=== PATIENT | male | born 1970 | race African-American/Black ===

== ENCOUNTER 2024-08-30 20:20 | Inpatient (IN) | payer OTHER ==
[2024-08-30] MEDS: SODIUM CHLORIDE 0.9% 500 ML INFUS.BAG IV ONE (21:19)
[2024-08-30 21:51] LABS: VENOUS BASE EXCESS -4.1 mmol/L (-2-2); VENOUS PCO2 39.8 mmHg (38-52); VENOUS PH 7.345 (7.310-7.410)
[2024-08-30 21:55] LABS: HEMATOCRIT 26.1 % (35.4-49); HEMOGLOBIN 8.7 GM/dL (11.7-16.9); MCH 29.2 pg (25.7-33.7); MCHC 33.4 g/dl (32.0-35.9); MEAN CELL VOLUME 87.4 fl (80-96); MEAN PLT VOLUME 9.3 fl (7.5-11.1); PLATELET COUNT 218 10^3/uL (134-434); RBC 2.99 M/mm3 (4.00-5.60); RDW 14.2 % (11.9-15.9); WHITE BLOOD COUNT 10.2 K/mm3 (4.0-10.0)
[2024-08-30 22:03] LABS: INR 1.29 (0.83-1.09); PROTHROMBIN TIME (PATIENT) 14.7 SEC (9.7-13.0)
[2024-08-30 22:05] LABS: ACTIVATED PTT 32.4 SECONDS (25.2-36.5)
[2024-08-30 22:15] LABS: POTASSIUM 5.5 mmol/L (3.5-5.1)
[2024-08-30 22:17] LABS: ALBUMIN 2.5 g/dl (3.4-5.0); BLOOD UREA NITROGEN 55.3 mg/dL (7-18); CALCIUM 8.8 mg/dL (8.5-10.1); MAGNESIUM 1.7 mg/dL (1.8-2.4)
[2024-08-30] MEDS: ACETAMINOPHEN 1000 MG/100 ML BAG IVPB ONE (22:18)
[2024-08-30] MEDS: VANCOMYCIN PREMIX 1.75 GM 1,750 MG/350 ML PIGGYBACK IVPB ONE (22:19)
[2024-08-30 22:20] LABS: CREATININE 5.7 mg/dL (0.55-1.3)
[2024-08-30 22:21] LABS: PHOSPHOROUS 3.5 mg/dL (2.5-4.9)
[2024-08-30 22:22] LABS: TOT PROT 7.2 g/dl (6.4-8.2)
[2024-08-30] MEDS: MAGNESIUM SULFATE IN WATER 2 GM/50 ML IVPB IVPB ONE (22:30)
[2024-08-30 22:41] LABS: BILIRUBIN,TOTAL 0.5 mg/dL (0.2-1)
[2024-08-30 22:43] LABS: ANISOCYTOSIS 1+; MACROCYTOSIS 0
[2024-08-30 23:05] LABS: POTASSIUM 4.5 mmol/L (3.5-5.1)
[2024-08-30 23:06] LABS: CALCIUM 8.9 mg/dL (8.5-10.1)
[2024-08-30 23:07] LABS: BLOOD UREA NITROGEN 54.5 mg/dL (7-18)
[2024-08-30 23:10] LABS: CREATININE 5.7 mg/dL (0.55-1.3)
[2024-08-30] MEDS ORDERED: ACETAMINOPHEN INJECTION 100 ML ONE (23:14)
[2024-08-30] MEDS ORDERED: MAGNESIUM SULFATE IN WATER 2 GM/50 ML IVPB IVPB ONE (23:20)
[2024-08-30] MEDS ORDERED: ONDANSETRON 4 MG/2 ML VIAL ONE (23:20)
[2024-08-30] MEDS: ONDANSETRON 4 MG/2 ML VIAL IVPUSH ONE (23:30)
[2024-08-30] MEDS: PIPERACILLIN/TAZOB 2.25 GM 2.25 GM in DEXTROSE 5%-WATER - 50 ML IVPB ONE (23:30)
[2024-08-30 23:37] LABS: ERYTHROCYTE SEDIMENTATION RATE 115 mm/hr (0-20)
[2024-08-30] MEDS ORDERED: PIPERACILLIN/TAZOB 2.25 GM 2.25 GM/50 ML BAG IVPB ONE (23:43)
[2024-08-31 01:59] LABS: EPI CELLS >36 /uL (0-25.1); HYALINE CASTS 3 /uL (0-3.1); PH,URINE 5.5 (5.0-8.0); URINE APPEARANCE CLOUDY; URINE BACTERIA 20 /uL (0-1359); URINE BILIRUBIN NEGATIVE (NEGATIVE); URINE COLOR YELLOW; URINE GLUCOSE (UA) NEGATIVE (NEGATIVE); URINE KETONE NEGATIVE (NEGATIVE); URINE LEUK ESTERASE 2+ (NEGATIVE); URINE NITRITE NEGATIVE (NEGATIVE); URINE PROTEIN 3+ (NEGATIVE); URINE WBC 386 /uL (0-25.8)
[2024-08-31] MEDS: HEPARIN NA (PORCINE) 5,000 UNITS/ML 1ML VIAL SQ SCH (06:51)
[2024-08-31] MEDS ORDERED: HEPARIN NA (PORCINE) 5,000 UNITS/ML 1ML VIAL ONE (06:51)
[2024-08-31] MEDS: INSULIN ASPART SLIDING SCALE (NOVOLOG) 1 VIAL SQ SCH (07:01)
[2024-08-31 08:26] LABS: MCH 29.2 pg (25.7-33.7); MCHC 33.3 g/dl (32.0-35.9); MEAN CELL VOLUME 87.7 fl (80-96); MEAN PLT VOLUME 8.6 fl (7.5-11.1); PLATELET COUNT 215 10^3/uL (134-434); RBC 3.08 M/mm3 (4.00-5.60); RDW 14.4 % (11.9-15.9); WHITE BLOOD COUNT 9.8 K/mm3 (4.0-10.0)
[2024-08-31 08:50] LABS: CHOLESTEROL 108 mg/dL (50-200); IRON SERUM 10 ug/dL (50-175)
[2024-08-31 08:51] LABS: TOTAL IRON BINDING CAPACITY 120 ug/dL (250-450)
[2024-08-31 08:52] LABS: LDL CHOLESTEROL (ONLY SJRH) 57 mg/dL (5-100)
[2024-08-31 08:53] LABS: HDL CHOLESTEROL 17 mg/dL (40-60)
[2024-08-31 08:54] LABS: POTASSIUM 4.7 mmol/L (3.5-5.1)
[2024-08-31 08:56] LABS: ALBUMIN 2.2 g/dl (3.4-5.0); CALCIUM 8.7 mg/dL (8.5-10.1)
[2024-08-31 08:57] LABS: MAGNESIUM 2.2 mg/dL (1.8-2.4)
[2024-08-31 09:00] LABS: CREATININE 5.5 mg/dL (0.55-1.3)
[2024-08-31 09:01] LABS: BILIRUBIN,TOTAL 0.6 mg/dL (0.2-1)
[2024-08-31 09:02] LABS: TOT PROT 6.5 g/dl (6.4-8.2)
[2024-08-31] MEDS ORDERED: PIPERACILLIN/TAZOB 2.25 GM 2.25 GM/50 ML BAG IVPB ONE (11:47)
[2024-08-31] MEDS: PIPERACILLIN/TAZOB 2.25 GM 2.25 GM in DEXTROSE 5%-WATER - 50 ML IVPB SCH (11:56)
[2024-08-31] MEDS ORDERED: VANCOMYCIN/WATER FOR INJ (PEG) 1,000 MG/200 ML BAG IVPB SCH (22:00)
[2024-08-31] MEDS ORDERED: VANCOMYCIN 1,000 MG in DEXTROSE 5%-WATER - 250 ML IVPB SCH (22:00)
[2024-08-31 22:09] VITALS: BMI 20.2
[2024-08-31] MEDS: PIPERACILLIN/TAZOB 2.25 GM 2.25 GM/50 ML BAG IVPB SCH (23:44)
[2024-08-31] MEDS: ACETAMINOPHEN 325 MG TABLET (FP) PO ONE (23:59)
[2024-09-01] MEDS: MELATONIN 5 MG TABLETS PO ONE (01:32)
[2024-09-01 10:50] LABS: BASO % 0.3 % (0-2.0); EOS % 2.8 % (0-4.5); HEMATOCRIT 26.3 % (35.4-49); LYMPH % 3.1 % (8-40); MCH 29.6 pg (25.7-33.7); MCHC 34.2 g/dl (32.0-35.9); MEAN CELL VOLUME 86.4 fl (80-96); MEAN PLT VOLUME 8.8 fl (7.5-11.1); MONO % 4.6 % (3.8-10.2); NEUT % 89.2 % (42.8-82.8); PLATELET COUNT 225 10^3/uL (134-434); RBC 3.04 M/mm3 (4.00-5.60); RDW 14.3 % (11.9-15.9); WHITE BLOOD COUNT 10.3 K/mm3 (4.0-10.0)
[2024-09-01 11:18] LABS: POTASSIUM 4.4 mmol/L (3.5-5.1)
[2024-09-01 11:25] LABS: CALCIUM 8.4 mg/dL (8.5-10.1)
[2024-09-01 11:28] LABS: BILIRUBIN,TOTAL 0.6 mg/dL (0.2-1); CREATININE 5.2 mg/dL (0.55-1.3); TOT PROT 6.4 g/dl (6.4-8.2)
[2024-09-01 11:30] LABS: ALBUMIN 2.1 g/dl (3.4-5.0); BLOOD UREA NITROGEN 56.4 mg/dL (7-18)
[2024-09-01] MEDS: PIPERACILLIN/TAZOB 2.25 GM 2.25 GM in DEXTROSE 5%-WATER - 50 ML IVPB SCH (11:45)
[2024-09-01] MEDS: COLLAGENASE CLOSTRIDIUM HIST. 30 GRAMS TUBE TP SCH (11:50)
[2024-09-01] MEDS: SODIUM CHLORIDE 1,000 ML IV SCH (15:45)
[2024-09-01] MEDS ORDERED: PIPERACILLIN/TAZOB 2.25 GM 2.25 GM/50 ML BAG IVPB SCH (23:45)
[2024-09-02] MEDS: QUEtiapine FUMARATE 50 MG TABLET PO ONE (00:15)
[2024-09-02] MEDS: MELATONIN 5 MG TABLETS PO PRN (00:16)
[2024-09-02 08:59] LABS: POTASSIUM 4.3 mmol/L (3.5-5.1)
[2024-09-02 09:00] LABS: CALCIUM 8.6 mg/dL (8.5-10.1)
[2024-09-02 09:02] LABS: ALBUMIN 1.9 g/dl (3.4-5.0); MAGNESIUM 1.9 mg/dL (1.8-2.4)
[2024-09-02 09:05] LABS: BILIRUBIN,TOTAL 0.5 mg/dL (0.2-1); CREATININE 4.8 mg/dL (0.55-1.3); PHOSPHOROUS 1.9 mg/dL (2.5-4.9); TOT PROT 6.1 g/dl (6.4-8.2)
[2024-09-02 09:08] LABS: HEMATOCRIT 25.6 % (35.4-49); HEMOGLOBIN 8.6 GM/dL (11.7-16.9); MCH 29.5 pg (25.7-33.7); MCHC 33.6 g/dl (32.0-35.9); MEAN CELL VOLUME 87.7 fl (80-96); MEAN PLT VOLUME 8.8 fl (7.5-11.1); PLATELET COUNT 215 10^3/uL (134-434); RBC 2.92 M/mm3 (4.00-5.60); RDW 14.7 % (11.9-15.9); WHITE BLOOD COUNT 9.8 K/mm3 (4.0-10.0)
[2024-09-02 14:11] LABS: METHADONE, UR NEGATIVE (NEGATIVE); OPIATES, URI NEGATIVE (NEGATIVE); PHENCYCLIDINE,URINE NEGATIVE (NEGATIVE); URINE BARBITURATES NEGATIVE (NEGATIVE); URINE BENZODIAZEPINES NEGATIVE (NEGATIVE)
[2024-09-02 14:15] LABS: COCAINE, UR POSITIVE (NEGATIVE); URINE AMPHETAMINES NEGATIVE (NEGATIVE)
[2024-09-03] MEDS: VITAMIN B COMP W-C 1 EA TABLET (NEPHRO-VITE) PO SCH (09:18)
[2024-09-03] MEDS: QUEtiapine FUMARATE 100 MG TABLET (FP) PO SCH (21:29)
[2024-09-04] MEDS: LIDOCAINE HCL 1%, 10 MG/ML (20ML VIAL) INF ONE
[2024-09-04] MEDS ORDERED: LIDOCAINE HCL/PF 1% SDV 5ML VIAL ONE (07:11)
[2024-09-04] MEDS ORDERED: BUPIVACAINE HCL/PF 0.5% (5MG/ML) 10 ML VIAL ONE (07:11)
[2024-09-04] MEDS ORDERED: GENTAMICIN SO4 80 MG/2 ML VIAL ONE (07:24)
[2024-09-04] MEDS ORDERED: LIDOCAINE HCL 1%, 10 MG/ML (20ML VIAL) ONE (07:24)
[2024-09-04] MEDS: PIPERACILLIN/TAZOB 2.25 GM 2.25 GM in DEXTROSE 5%-WATER - 50 ML IVPB SCH ×2 (07:42→12:56)
[2024-09-04] MEDS ORDERED: MIDAZOLAM HCL 2 MG/2 ML SINGLE DOSE VIAL ONE (07:43)
[2024-09-04] MEDS ORDERED: SUCCINYLCHOLINE CHLORIDE 200 MG/10 ML SYRINGE ONE (07:43)
[2024-09-04] MEDS ORDERED: PROPOFOL 20 ML ONE (07:43)
[2024-09-04] MEDS: BUPIVACAINE HCL/PF 0.5% (5MG/ML) 10 ML VIAL IJ ONE (07:52)
[2024-09-04 10:25] LABS: HEMOGLOBIN 8.3 GM/dL (11.7-16.9); MCH 28.9 pg (25.7-33.7); MCHC 33.3 g/dl (32.0-35.9); MEAN CELL VOLUME 86.9 fl (80-96); MEAN PLT VOLUME 8.8 fl (7.5-11.1); PLATELET COUNT 236 10^3/uL (134-434); RBC 2.87 M/mm3 (4.00-5.60); RDW 14.8 % (11.9-15.9); WHITE BLOOD COUNT 10.4 K/mm3 (4.0-10.0)
[2024-09-04 10:45] LABS: POTASSIUM 4.3 mmol/L (3.5-5.1)
[2024-09-04 10:48] LABS: BLOOD UREA NITROGEN 54.4 mg/dL (7-18)
[2024-09-04 10:52] LABS: CREATININE 4.6 mg/dL (0.55-1.3); PHOSPHOROUS 1.8 mg/dL (2.5-4.9)
[2024-09-04] MEDS: VANCOMYCIN/WATER FOR INJ (PEG) 1,000 MG/200 ML BAG IVPB SCH (12:05)
[2024-09-04] MEDS: VANCOMYCIN 1,000 MG in DEXTROSE 5%-WATER - 250 ML IVPB SCH (12:55)
[2024-09-04] MEDS: PIPERACILLIN/TAZOB 2.25 GM 2.25 GM/50 ML BAG IVPB SCH (12:56)
[2024-09-04] MEDS: NAPH,MB-DB/K PH,MBDB POWDER PACKET PO ONE (13:23)
[2024-09-04] MEDS: CEFTRIAXONE 2 GM-D5W BAG 2 GM/50 ML BAG IVPB SCH (13:23)
[2024-09-04 14:37] VITALS: RESP 18
[2024-09-04 21:06] LABS: ANTIGLOMERULAR BASEMENT MEN.AB <0.2 units (0.0-0.9)
[2024-09-04] MEDS: HEPARIN NA (PORCINE) 5,000 UNITS/ML 1ML VIAL SQ SCH (21:55)
[2024-09-05 13:13] LABS: HEMATOCRIT 25.5 % (35.4-49); HEMOGLOBIN 8.2 GM/dL (11.7-16.9); MCH 28.4 pg (25.7-33.7); MCHC 32.1 g/dl (32.0-35.9); MEAN CELL VOLUME 88.5 fl (80-96); MEAN PLT VOLUME 8.8 fl (7.5-11.1); PLATELET COUNT 309 10^3/uL (134-434); RBC 2.88 M/mm3 (4.00-5.60); RDW 14.8 % (11.9-15.9)
[2024-09-05 13:38] LABS: POTASSIUM 4.7 mmol/L (3.5-5.1)
[2024-09-05 13:43] LABS: ALBUMIN 2.1 g/dl (3.4-5.0); BLOOD UREA NITROGEN 55.4 mg/dL (7-18); CALCIUM 8.6 mg/dL (8.5-10.1)
[2024-09-05 13:46] LABS: CREATININE 4.4 mg/dL (0.55-1.3)
[2024-09-05 13:47] LABS: BILIRUBIN,TOTAL 0.2 mg/dL (0.2-1); PHOSPHOROUS 2.5 mg/dL (2.5-4.9); TOT PROT 7.2 g/dl (6.4-8.2)
[2024-09-05 16:08] LABS: C-ANCA <1:20 titer (Neg:<1:20)
[2024-09-06 12:24] LABS: HEMATOCRIT 24.7 % (35.4-49); HEMOGLOBIN 8.1 GM/dL (11.7-16.9); MCH 29.2 pg (25.7-33.7); MCHC 32.8 g/dl (32.0-35.9); MEAN CELL VOLUME 89.1 fl (80-96); MEAN PLT VOLUME 8.5 fl (7.5-11.1); PLATELET COUNT 335 10^3/uL (134-434); RBC 2.77 M/mm3 (4.00-5.60); RDW 15.1 % (11.9-15.9); WHITE BLOOD COUNT 10.9 K/mm3 (4.0-10.0)
[2024-09-06 12:37] LABS: POTASSIUM 5.1 mmol/L (3.5-5.1)
[2024-09-06 12:44] LABS: BLOOD UREA NITROGEN 57.8 mg/dL (7-18); CALCIUM 8.6 mg/dL (8.5-10.1); MAGNESIUM 2.1 mg/dL (1.8-2.4)
[2024-09-06 12:48] LABS: CREATININE 4.2 mg/dL (0.55-1.3)
[2024-09-07] MEDS ORDERED: MELATONIN 5 MG TABLETS PO PRN (08:14)
[2024-09-07 10:00] VITALS: BP 139/79; PULSE 89; TEMP 97.9
[2024-09-07 10:23] LABS: HEMATOCRIT 25.9 % (35.4-49); HEMOGLOBIN 8.4 GM/dL (11.7-16.9); MCH 28.9 pg (25.7-33.7); MCHC 32.5 g/dl (32.0-35.9); MEAN CELL VOLUME 88.9 fl (80-96); MEAN PLT VOLUME 8.6 fl (7.5-11.1); PLATELET COUNT 402 10^3/uL (134-434); RBC 2.91 M/mm3 (4.00-5.60); RDW 15.1 % (11.9-15.9); WHITE BLOOD COUNT 10.3 K/mm3 (4.0-10.0)
[2024-09-07 10:32] LABS: POTASSIUM 5.1 mmol/L (3.5-5.1)
[2024-09-07 10:42] LABS: ALBUMIN 2.2 g/dl (3.4-5.0); CALCIUM 8.9 mg/dL (8.5-10.1); MAGNESIUM 2.1 mg/dL (1.8-2.4)
[2024-09-07 10:45] LABS: PHOSPHOROUS 3.4 mg/dL (2.5-4.9)
[2024-09-07 10:47] LABS: BILIRUBIN,TOTAL 0.3 mg/dL (0.2-1)
[2024-09-07] MEDS: FLUoxetine HCL 10 MG CAPSULE PO SCH (10:49)
[2024-09-07] MEDS: NIFEdipine E.R. 30 MG TABLET PO SCH (10:50)
[2024-09-07] MEDS: VITAMIN B COMP W-C 1 EA TABLET (NEPHRO-VITE) PO SCH (10:50)
[2024-09-07] MEDS: SODIUM CHLORIDE 1,000 ML IV SCH (10:51)
[2024-09-07 10:56] LABS: ANISOCYTOSIS 0; MACROCYTOSIS 0
[2024-09-07] MEDS: INSULIN ASPART SLIDING SCALE (NOVOLOG) 1 VIAL SQ SCH (12:02)
[2024-09-07] MEDS: COLLAGENASE CLOSTRIDIUM HIST. 30 GRAMS TUBE TP SCH (15:03)
[2024-09-07] MEDS ORDERED: QUEtiapine FUMARATE 100 MG TABLET (FP) PO SCH (22:00)
[2024-09-08] MEDS ORDERED: AMOX TR/POT CLAV 500MG/125MG TABLETS (FP) PO SCH (08:00)
== END 2024-09-07 18:56 | disposition home or self-care (01) | DRG 344 ==
LOC: JER 20:20 → JERBED 23:13 → J6S 08-31 18:27
PROVIDERS: ADMIT Internal Medicine; ATTEND Internal Medicine
PROC: 0QBN3ZX Excision of Right Metatarsal, Percutaneous Approach, Diagnostic (ICD-10-PCS; principal; 2024-09-04 07:30)
DX: E11.69 Type 2 diabetes mellitus with other specified complication (principal); M86.9 Osteomyelitis, unspecified; E11.621 Type 2 diabetes mellitus with foot ulcer; N17.9 Acute kidney failure, unspecified; L03.115 Cellulitis of right lower limb; D63.1 Anemia in chronic kidney disease; F14.10 Cocaine abuse, uncomplicated; I10 Essential (primary) hypertension; L97.519 Non-pressure chronic ulcer of other part of right foot with unspecified severity; N18.9 Chronic kidney disease, unspecified; Z59.00 Homelessness unspecified
CPT/HCPCS: 0241U-QW; 36415; 71045-TC-FY; 71046-TC-FY; 73630-TC-RT-FY; 73718-TC-RT; 76775-TC; 80048; 80053; 80061; 80307; 81003; 82010; 82550; 82570; 82728; 82803; 82962; 83036; 83516; 83520; 83540; 83550; 83605; 83690; 83735; 84100; 84155; 84165; 84300; 84484; 85025; 85027; 85610; 85651; 85660; 85730; 86038; 86140; 86225; 86256; 86480; 86780; 86803; 86850; 86900; 86901; 87040; 87070; 87075; 87077; 87081; 87086; 87116; 87186; 87205; 87206; 87522; 93005; 93010; 93922; 93926-TC; 97116-GP; 97161-GP; 99285-25; G0480; J0131; J1644; J3370

== ENCOUNTER 2024-09-09 23:59 | Emergency (ER) | payer OTHER ==
[2024-09-10 00:28] VITALS: BP 156/91; PULSE 96; RESP 17; TEMP 98; BMI 19.5
[2024-09-10] MEDS ORDERED: diphenhydrAMINE HCL 25 MG CAPSULE (FP) PO ONE (00:48)
[2024-09-10] MEDS: diphenhydrAMINE HCL 25 MG CAPSULE (FP) PO ONE (01:00)
== END 2024-09-10 03:11 | disposition home or self-care (01) ==
LOC: JER 23:59
DX: L29.9 Pruritus, unspecified (principal)
CPT/HCPCS: 99283-25

== ENCOUNTER 2024-09-11 19:17 | Inpatient (IN) | payer OTHER ==
[2024-09-11] MEDS: ACETAMINOPHEN 1000 MG/100 ML BAG IVPB ONE (20:38)
[2024-09-11] MEDS ORDERED: PIPERACILLIN/TAZOB 2.25 GM 2.25 GM/50 ML BAG IVPB ONE (21:12)
[2024-09-11] MEDS ORDERED: ACETAMINOPHEN INJECTION 100 ML ONE (21:12)
[2024-09-11 21:20] LABS: EOS % 2.7 % (0-4.5); HEMATOCRIT 21.3 % (35.4-49); LYMPH % 26.1 % (8-40); MCH 28.6 pg (25.7-33.7); MCHC 32.1 g/dl (32.0-35.9); MEAN CELL VOLUME 89.1 fl (80-96); MEAN PLT VOLUME 7.5 fl (7.5-11.1); MONO % 8.4 % (3.8-10.2); NEUT % 61.8 % (42.8-82.8); PLATELET COUNT 460 10^3/uL (134-434); RBC 2.39 M/mm3 (4.00-5.60); RDW 15.1 % (11.9-15.9); WHITE BLOOD COUNT 8.3 K/mm3 (4.0-10.0)
[2024-09-11] MEDS: PIPERACILLIN/TAZOB 2.25 GM 2.25 GM in DEXTROSE 5%-WATER - 50 ML IVPB ONE (21:29)
[2024-09-11 21:31] LABS: POTASSIUM 5.7 mmol/L (3.5-5.1)
[2024-09-11 21:34] LABS: ALBUMIN 2.4 g/dl (3.4-5.0); BLOOD UREA NITROGEN 71.9 mg/dL (7-18)
[2024-09-11 21:37] LABS: CREATININE 4.6 mg/dL (0.55-1.3)
[2024-09-11 21:38] LABS: BILIRUBIN,TOTAL 0.2 mg/dL (0.2-1); TOT PROT 7.6 g/dl (6.4-8.2)
[2024-09-11 21:49] LABS: HEMOGLOBIN 6.8 GM/dL (11.7-16.9)
[2024-09-11] MEDS ORDERED: DEXTROSE 50%-WATER 25 GM/50 ML DISP.SYRIN ONE (22:46)
[2024-09-11] MEDS ORDERED: INSULIN REGULAR HUMAN 100 UNITS/ML *VIAL ONE (22:47)
[2024-09-11] MEDS: DEXTROSE 50%-WATER - 25 GM/50 ML VIAL IVPUSH ONE (22:57)
[2024-09-11] MEDS: INSULIN REGULAR HUMAN 100 UNITS/ML *VIAL IVPUSH ONE (22:57)
[2024-09-11 22:59] LABS: ERYTHROCYTE SEDIMENTATION RATE > 140 mm/hr (0-20)
[2024-09-11] MEDS ORDERED: VANCOMYCIN 1 GRAM (PRE-DOCKED) 1,000 MG/250 ML BAG IVPB ONE (23:05)
[2024-09-11] MEDS: VANCOMYCIN 1,000 MG in DEXTROSE 5%-WATER - 250 ML IVPB ONE (23:16)
[2024-09-12] MEDS ORDERED: DEXTROSE 50%-WATER 25 GM/50 ML DISP.SYRIN ONE ×2 (00:08→04:24)
[2024-09-12] MEDS: DEXTROSE 50%-WATER 25 GM/50 ML DISP.SYRIN IVPUSH ONE ×2 (00:18→15:55)
[2024-09-12] MEDS: DEXTROSE 50%-WATER - 25 GM/50 ML VIAL IVPUSH ONE (05:17)
[2024-09-12] MEDS ORDERED: SODIUM ZIRCONIUM CYCLOSILICATE (LOKELMA) 10 GM PACKET ONE (09:47)
[2024-09-12] MEDS ORDERED: NIFEdipine E.R. 30 MG TABLET PO ONE (09:47)
[2024-09-12] MEDS: NIFEdipine E.R. 30 MG TABLET PO SCH (10:01)
[2024-09-12] MEDS: SODIUM ZIRCONIUM CYCLOSILICATE (LOKELMA) 5 GM PACKET PO SCH (10:01)
[2024-09-12 10:02] LABS: BASO % 1.3 % (0-2.0); HEMATOCRIT 23.8 % (35.4-49); HEMOGLOBIN 7.5 GM/dL (11.7-16.9); LYMPH % 27.1 % (8-40); MCH 28.2 pg (25.7-33.7); MCHC 31.4 g/dl (32.0-35.9); MEAN PLT VOLUME 7.8 fl (7.5-11.1); MONO % 6.6 % (3.8-10.2); PLATELET COUNT 510 10^3/uL (134-434); RBC 2.65 M/mm3 (4.00-5.60); RDW 15.1 % (11.9-15.9); WHITE BLOOD COUNT 7.6 K/mm3 (4.0-10.0)
[2024-09-12 10:07] LABS: INR 1.13 (0.83-1.09); PROTHROMBIN TIME (PATIENT) 12.7 SEC (9.7-13.0)
[2024-09-12] MEDS: DAPTOMYCIN 450 MG in SODIUM CHLORIDE 50 ML IVPB SCH ×2 (10:14→21:05)
[2024-09-12 10:34] LABS: POTASSIUM 5.8 mmol/L (3.5-5.1)
[2024-09-12 10:36] LABS: CALCIUM 8.2 mg/dL (8.5-10.1)
[2024-09-12 10:37] LABS: ALBUMIN 2.2 g/dl (3.4-5.0); BLOOD UREA NITROGEN 66.9 mg/dL (7-18)
[2024-09-12 10:40] LABS: CREATININE 4.2 mg/dL (0.55-1.3); PHOSPHOROUS 4.4 mg/dL (2.5-4.9)
[2024-09-12 10:41] LABS: BILIRUBIN,TOTAL 0.3 mg/dL (0.2-1); TOT PROT 7.6 g/dl (6.4-8.2)
[2024-09-12] MEDS: INSULIN REGULAR HUMAN 100 UNITS/ML *VIAL IVPUSH ONE (15:55)
[2024-09-12] MEDS: CALCIUM GLUCONATE IN NACL 1 GM/50 ML BAG IVPB ONE (15:56)
[2024-09-12] MEDS: SODIUM ZIRCONIUM CYCLOSILICATE (LOKELMA) 5 GM PACKET PO ONE (16:11)
[2024-09-12 16:14] VITALS: RESP 18
[2024-09-12 16:57] VITALS: BMI 21.6
[2024-09-12] MEDS: CEFTRIAXONE 2 GM-D5W BAG 2 GM/50 ML BAG IVPB SCH (17:25)
[2024-09-12 18:48] LABS: POTASSIUM 5.4 mmol/L (3.5-5.1)
[2024-09-12 18:51] LABS: CALCIUM 8.2 mg/dL (8.5-10.1)
[2024-09-12] MEDS: SODIUM CHLORIDE 0.45% 1,000 ML IV SCH (18:54)
[2024-09-12 18:55] LABS: CREATININE 4.1 mg/dL (0.55-1.3)
[2024-09-12] MEDS: QUEtiapine FUMARATE 100 MG TABLET (FP) PO SCH (22:55)
[2024-09-13] MEDS: SODIUM ZIRCONIUM CYCLOSILICATE (LOKELMA) 5 GM PACKET PO ONE (06:07)
[2024-09-13 09:18] LABS: EOS % 2.8 % (0-4.5); HEMATOCRIT 24.5 % (35.4-49); LYMPH % 31.8 % (8-40); MCH 29.1 pg (25.7-33.7); MCHC 32.7 g/dl (32.0-35.9); MEAN CELL VOLUME 89.1 fl (80-96); MEAN PLT VOLUME 7.5 fl (7.5-11.1); MONO % 5.8 % (3.8-10.2); NEUT % 58.6 % (42.8-82.8); PLATELET COUNT 486 10^3/uL (134-434); RBC 2.75 M/mm3 (4.00-5.60); RDW 15.1 % (11.9-15.9); WHITE BLOOD COUNT 7.5 K/mm3 (4.0-10.0)
[2024-09-13 10:02] LABS: POTASSIUM 5.5 mmol/L (3.5-5.1)
[2024-09-13 10:04] LABS: ALBUMIN 2.3 g/dl (3.4-5.0); CALCIUM 8.6 mg/dL (8.5-10.1)
[2024-09-13 10:05] LABS: BLOOD UREA NITROGEN 55.7 mg/dL (7-18); MAGNESIUM 1.9 mg/dL (1.8-2.4)
[2024-09-13 10:07] LABS: CREATININE 3.8 mg/dL (0.55-1.3); PHOSPHOROUS 3.8 mg/dL (2.5-4.9)
[2024-09-13 10:09] LABS: BILIRUBIN,TOTAL 0.2 mg/dL (0.2-1); TOT PROT 7.9 g/dl (6.4-8.2)
[2024-09-13] MEDS: COLLAGENASE CLOSTRIDIUM HIST. 30 GRAMS TUBE TP SCH (12:30)
[2024-09-13] MEDS: SODIUM CHLORIDE 0.45% 1,000 ML IV SCH (13:57)
[2024-09-13] MEDS: VANCOMYCIN/WATER 1250 MG 1,250 MG/250 ML BAG IVPB SCH (14:12)
[2024-09-13] MEDS: diphenhydrAMINE HCL 25 MG CAPSULE (FP) PO ONE (20:35)
[2024-09-13] MEDS: HEPARIN NA (PORCINE) 5,000 UNITS/ML 1ML VIAL SQ SCH (21:39)
[2024-09-14 08:13] LABS: BASO % 0.7 % (0-2.0); EOS % 2.1 % (0-4.5); HEMOGLOBIN 8.4 GM/dL (11.7-16.9); LYMPH % 29.1 % (8-40); MCH 28.9 pg (25.7-33.7); MCHC 32.2 g/dl (32.0-35.9); MEAN CELL VOLUME 89.7 fl (80-96); MEAN PLT VOLUME 8.1 fl (7.5-11.1); MONO % 5.6 % (3.8-10.2); NEUT % 62.5 % (42.8-82.8); PLATELET COUNT 509 10^3/uL (134-434); RDW 14.5 % (11.9-15.9); WHITE BLOOD COUNT 8.2 K/mm3 (4.0-10.0)
[2024-09-14 08:30] LABS: POTASSIUM 5.2 mmol/L (3.5-5.1)
[2024-09-14 08:42] LABS: ALBUMIN 2.5 g/dl (3.4-5.0); BLOOD UREA NITROGEN 50.3 mg/dL (7-18); CALCIUM 8.8 mg/dL (8.5-10.1); MAGNESIUM 1.8 mg/dL (1.8-2.4)
[2024-09-14 08:44] LABS: CREATININE 3.6 mg/dL (0.55-1.3)
[2024-09-14 08:45] LABS: BILIRUBIN,TOTAL 0.3 mg/dL (0.2-1); PHOSPHOROUS 3.7 mg/dL (2.5-4.9)
[2024-09-14 08:47] LABS: TOT PROT 8.4 g/dl (6.4-8.2)
[2024-09-14] MEDS: ONDANSETRON 4 MG/2 ML VIAL IVPUSH ONE (09:09)
[2024-09-14] MEDS: LABETALOL HCL 100 MG TABLET (FP) PO ONE (14:20)
[2024-09-14 14:29] VITALS: BP 163/96; PULSE 101; TEMP 98.6
== END 2024-09-14 14:50 | disposition home or self-care (01) | DRG 344 ==
LOC: JER 19:17 → JERBED 09-12 01:48 → OBSVTOIN 09-12 08:08 → J6S 09-12 14:41
PROVIDERS: ADMIT Internal Medicine; ATTEND Internal Medicine
DX: E11.69 Type 2 diabetes mellitus with other specified complication (principal); M86.671 Other chronic osteomyelitis, right ankle and foot; E11.22 Type 2 diabetes mellitus with diabetic chronic kidney disease; F20.9 Schizophrenia, unspecified; E87.5 Hyperkalemia; L97.519 Non-pressure chronic ulcer of other part of right foot with unspecified severity; I12.9 Hypertensive chronic kidney disease with stage 1 through stage 4 chronic kidney disease, or unspecified chronic kidney disease; E78.5 Hyperlipidemia, unspecified; N18.9 Chronic kidney disease, unspecified; D64.9 Anemia, unspecified; F14.10 Cocaine abuse, uncomplicated
CPT/HCPCS: 36415; 73630-TC-RT-FY; 80048; 80053; 82272; 82728; 82962; 83540; 83550; 83735; 84100; 85025; 85610; 85651; 86140; 86850; 86900; 86901; 86922; 87070; 87205; 93005; 93010; 99283-25; 99285-25; G0378; J0131; J0878